=== PATIENT | male | born 1955 | race African-American/Black ===

== ENCOUNTER 2023-03-27 08:00 | Day surgery (SDC) | payer BC, SELFPAY ==
[2023-03-27] VITALS (13 sets, daily range): BP systolic 128–189; BP diastolic 78–106; PULSE 45–75; RESP 12–16; TEMP 36–36.7; O2SAT 94–98; BMI 30.7
[2023-03-27] MEDS: LACTATED RINGERS 1000 ML 1,000 ML 100 ML IV (08:20)
[2023-03-27] MEDS: SODIUM CHLORIDE 0.9 % (FLUSH) 10 ML SYRINGE IVF (08:49)
--- NOTE | 2023-03-27 10:34 | P.GSOP_ITS ---
Operative Note Pre-op diagnosis: Right inguinal hernia Post-op diagnosis: Same Type of Procedure: Laparoscopic repair of right inguinal hernia with mesh Indications: The patient is a 67-year-old male with a large right inguinal hernia. After discussion of management options including repair versus watchful waiting, he elected to proceed with repair. Procedure Description: After discussing the risks and benefits of the procedure, the patient signed informed consent.? The operative site was marked and the patient was brought to the operating room and placed on the operating table in supine position.? Care was taken to pad the patient's pressure points.?? The patient was then intubated by anesthesia.?? The operative site was then prepped and draped in the usual sterile fashion.? A time-out was then performed. A curvilinear incision was made below the umbilicus. Dissection was carried down to subcutaneous tissue until the anterior rectus fascia was encountered. This was incised off the midline on the right. The rectus muscle fibers were then retracted exposing the posterior fascia. A port with a dissecting balloon was then introduced into the pre-preperitoneal space. This was inflated under direct vision. The balloon was deflated, removed, and a 10 mm working port was placed. The space was insufflated and a 10 mm 30-degree scope was then advanced into the space. Two 5 mm ports were placed in the midline under direct vision. Dissection began on the right side. A large direct hernia was noted. This was containing fat. This was completely reduced. David's ligament and the pubic bone were then exposed medially. Following this, dissection was carried out laterally. There was no large indirect defect, however the peritoneum was dissected free from the cord structures. During the dissection, small bleeding vessels on the preperitoneal fat were controlled with a combination of clips and cautery. Once the space was completely dissected, a piece of Bard 3DMax mesh for the appropriate side was placed into the abdomen. This was positioned with the marker pointed medially and crossing the midline to prevent recurrence of the direct hernia. A Tacker was used to attach the mesh medially at David's ligament as well as anterior superiorly to this and 1 tack laterally with care to avoid the epigastric vessels and stay above the inguinal ligament. Once this was completed the herniated fat was placed on top of the mesh and the preperitoneal space desufflated under direct vision to ensure the mesh laid f lat. 10 mL of 0.5% Marcaine were instilled into the preperitoneal space through a port. The ports were removed. The fascia from the infraumbilical port was closed with 0 Vicryl. The skin incisions were closed with absorbable subcuticular suture. Sterile dressings were then applied. The scrotum was examined to ensure that both testicles were down. Instrument sponge and needle counts were correct at the end of the case. The patient was then woken and transported to the recovery area in stable condition. ? The patient tolerated the procedure well. Findings: Large fat containing direct right inguinal hernia. Implants: Large Bard 3DMax mesh for the right side Anesthesia: GETA Surgeon: Yudy Munoz MD Estimated blood loss (mL): 20 Condition: stable Disposition: PACU Date of procedure: 03/27/23
[2023-03-27] MEDS: BUPIVACAINE 0.25% 30 ML INJECTION (12:10)
--- NOTE | 2023-03-27 12:31 | W.ANESCHARGE ---
Anesthesia Charges Start Date/Time Anesthesia Start Date: 03/27/23 Anesthesia Start Time: 10:40 Stop Date/Time Anesthesia Stop Date: 03/27/23 Anesthesia Stop Time: 12:29
[2023-03-27] MEDS: HYDROmorphone 0.5 mg/0.5 ml inj IVP ×2 (12:32→12:46)
--- NOTE | 2023-03-27 12:57 | W.ANESCHARGE ---
Anesthesia Charges Start Date/Time Anesthesia Start Date: 03/27/23 Anesthesia Start Time: 10:40 Stop Date/Time Anesthesia Stop Date: 03/27/23 Anesthesia Stop Time: 12:29
== END 2023-03-27 14:11 | disposition home or self-care (01) ==
PROVIDERS: PCP Family Medicine; Visit Provider Surgery
PROC: (CPT 49650; principal; 2023-03-27 09:30)
DX: K40.90 Unilateral inguinal hernia, without obstruction or gangrene, not specified as recurrent (principal)
CPT/HCPCS: 49650; 790; 830; 840; C1781; J0330; J0665; J1100; J1170; J1885; J2405; J2704; J2710; J3010; J7120

== ENCOUNTER 2023-09-14 21:40 | Emergency (ER) | payer OTHER, BC, SELFPAY ==
[2023-09-14 21:57] VITALS: BP 165/83; PULSE 79; RESP 16; TEMP 36.8; O2SAT 97
--- NOTE | 2023-09-14 22:45 | ED.NECK ---
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 He did not have any pain initially but now has developed tightness in his neck and upper back. He does not report any headache or neurologic deficits. Related Data Home Medications Medication Instructions Recorded Confirmed ascorbic acid 1,000 1 ea PO 03/24/23 tj-hwlrbdifnsvq-avbczgnj powder effervescent pack (Emergen-C) atorvastatin 40 mg tablet 40 mg PO DAILY 03/24/23 03/27/23 chlorthalidone 25 mg tablet 25 mg PO DAILY 03/24/23 03/27/23 cholecalciferol (vitamin D3) 25 1,000 unit PO DAILY 03/24/23 03/27/23 mcg (1,000 unit) capsule cyanocobalamin (vitamin B-12) 1,000 mcg PO DAILY 03/24/23 03/27/23 1,000 mcg capsule multivitamin (Daily Multi-Vitamin 1 tab PO DAILY 03/24/23 03/27/23 tablet) sildenafil 100 mg tablet 100 mg PO DAILY PRN 03/24/23 03/27/23 Previous Rx's Medication Instructions Recorded hydrocodone 5 mg-acetaminophen 325 1 - 2 tab PO Q6H PRN Pain #20 tabs 03/27/23 mg tablet Allergies Allergy/AdvReac Type Severity Reaction Status Date / Time No Known Allergies Allergy Unknown Verified 03/27/23 08:34 Review of Systems Status of ROS: Reports: 10 or more systems reviewed and unremarkable except as noted in History and below Narrative: Constitutional: No fevers, no weight gain or loss. Eyes: No discharge. No vision changes. HENT: No congestion, no sore throat, no ear pain. Cardiovascular: No chest pain, no palpitations. Respiratory: No shortness of breath, no wheezes, no cough. Gastrointestinal: No abdominal pain, no vomiting, no diarrhea. Genitourinary: No dysuria, no hematuria. Musculoskeletal: Neck pain as described above with some decreased range of motion. Skin: No rashes, no pruritis. Neurological: No dizziness, weakness, sensory change, speech change. Endo/Heme/Allergies: No bruising or bleeding. No polydipsia. Pysch: no suicidality, no anxiety, no insomnia. All other systems reviewed and are negative. PFSH PFSH Social History Smoking Status: Current every day smoker What tobacco products do you use: cigarettes Do you use any of these nicotine containing products: None How often do you have a drink containing alcohol: monthly or less How many standard drinks containing alcohol do you have on a typical day: 1 or 2 How often do you have six or more drinks on one occasion: Never AUDIT-C Alcohol total score: 1 Non-prescribed substance use: denies use Caffeine: Yes Exam Narrative: Exam Narrative: Constitutional: Well-developed, well-nourished, no acute distress. HEENT: Normocephalic, atraumatic. Neck: No midline tenderness. Diffuse pain bilaterally with associated decreased range of motion. The patient is able to flex and extend. Heart: Intact distal pulses. Lungs: No chest discomfort. No wheezes, rhonchi, or rales. Abdomen: Nontender. Back: Normal range of motion. Extremities: Normal range of motion. No injury. Skin: Intact. No rash. Warm. No erythema or pallor. Neurologic: No altered sensation. No weakness. Alert and oriented. Psychiatric: No suicidality. No anxiety or depression. No insomnia. Nursing notes and vitals signs are reviewed. Const: Vital Signs, click to edit/add: Vital Signs - 24 hr 09/14/23 21:57 Temperature 98.3 F Pulse Rate [Left P ulse Oximeter] 79 Respiratory Rate 16 Blood Pressure [Ri ght Upper Arm] 165/83 H Pulse Oximetry 97 Oxygen Delivery Me thod Room Air Course Vital Signs Vital signs: Initial Vital Signs Temperature 98.3 F 09/14/23 21:57 Temperature Source Temporal Artery Scan 09/14/23 21:57 Pulse Rate 79 09/14/23 21:57 Pulse Rhythm Regular 09/14/23 21:57 Respiratory Rate 16 09/14/23 21:57 Blood Pressure 165/83 H 09/14/23 21:57 Blood Pressure Mean 110 H 09/14/23 21:57 Blood Pressure Position Sitting 09/14/23 21:57 Pulse Oximetry 97 09/14/23 21:57 Oxygen Delivery Method Room Air 09/14/23 21:57 Vital Signs Temperature 98.3 F 09/14/23 21:57 Pulse Rate 79 09/14/23 21:57 Respiratory Rate 16 09/14/23 21:57 Blood Pressure 165/83 H 09/14/23 21:57 Pulse Oximetry 97 09/14/23 21:57 Oxygen Delivery Method Room Air 09/14/23 21:57 Temperature 98.3 F 09/14/23 21:57 Pulse Rate 79 09/14/23 21:57 Respiratory Rate 16 09/14/23 21:57 Blood Pressure 165/83 H 09/14/23 21:57 Pulse Oximetry 97 09/14/23 21:57 Oxygen Delivery Method Room Air 09/14/23 21:57 MDM - Neck Pain/Injury MDM Narrative Medical decision making narrative: This patient comes in reporting increasing neck and upper back pain after a sort of whiplash injury that occurred at work today. He does not have any midline tenderness. Nexus rules for neck imaging indicate no need for imaging at this time. The patient did receive a return to work note and prescriptions for Toradol and Flexeril. I advised him to follow-up with the spine clinic as needed. Discharge Plan Discharge Clinical Impression: Strain of neck muscle Patient Disposition: Home, Self-Care Condition: Unchanged Additional Instructions: Take medication as needed and indicated. Increase activity as tolerated. Follow up with spine clinic if needed. Call [phone] for appointment. Prescriptions: No Action Emergen-C 1,000 mg powder effervescent in packet 1 ea PO atorvastatin 40 mg tablet 40 mg PO DAILY chlorthalidone 25 mg tablet 25 mg PO DAILY cholecalciferol (vitamin D3) 25 mcg (1,000 unit) capsule 1,000 unit PO DAILY cyanocobalamin (vitamin B-12) 1,000 mcg capsule 1,000 mcg PO DAILY multivitamin [Daily Multi-Vitamin] Tablet 1 tab PO DAILY sildenafil 100 mg tablet 100 mg PO DAILY PRN Rx Instructions: administer 30 minutes to 4 hours before activity hydrocodone-acetaminophen 5-325 mg Tablet 1 - 2 tab PO Q6H PRN (Reason: Pain) Qty: 20 0RF Follow Up/Referrals: Car Gan MD [Primary Care Provider] - Stand Alone [facility]: [facility]
--- OUTSIDE RECORDS SUMMARY | 2023-09-14 23:05 | XMS_ITS | Clinical Summary ---
Author Name Unknown Organization [facility] Address [place], [place] [address] Care Team Providers Care Mechanical Drafter Name Role Phone VotelCar MD Primary Care Provider + Allergies No known active allergies Medications Medication Sig Dispensed Refills Start Date End Date Status multivitamin (MVI) tablet Take 1 tablet by mouth once daily. 0 08/12/2016 Active Ascorbic Thie-Scmppttzz-Qsf (EMERGEN-C) 1,000 mg pwep Take by mouth. 0 08/12/2016 Active Cholecalciferol, Vitamin D3, (VITAMIN D3) 1,000 unit tablet Take 1 tablet by mouth once daily. 07/18/2018 Active cyanocobalamin (Vitamin B-12) 1,000 mcg tablet Take 1 Tablet (1,000 mcg) by mouth once daily. 90 Tablet 3 10/06/2022 Active sildenafil citrate (Viagra) 100 mg tabletIndications:Erec tile dysfunction, unspecified erectile dysfunction type Take 1 Tablet (100 mg) by mouth once daily if needed for Erectile Dysfunction. Take 30min to 4 hours before sexual activity. Max 100mg/24hr. 10 Tablet 3 10/06/2022 Active atorvastatin (LIPITOR) 40 mg tabletIndications:Hype rlipidemia, unspecified hyperlipidemia type Take 1 Tablet (40 mg) by mouth once daily. 90 Tablet 3 10/06/2022 Active chlorthalidone (HYGROTON) 25 mg tabletIndications:HTN (hypertension) Take 1 Tablet (25 mg) by mouth once daily. 90 Tablet 3 10/12/2022 Active Active Problems Problem Noted Date Diagnosed Date Hypersomnolence 08/18/2016 Snoring 08/18/2016 Hyperlipidemia 08/29/2014 Vitamin D deficiency 08/29/2014 Colon polyp 04/01/2011 Overview: Colonoscopy 03/2011 polyp repeat in 5 years Colonoscopy 08/2016 polyps repeat in 3 years Colonoscopy 12/2019 normal, repeat in 5 years Tobacco use disorder 01/27/2011 Resolved Problems Problem Noted Date Diagnosed Date Resolved Date Routine general medical exam ination at a health care facility 01/27/2011 07/18/2018 Immunizations Name Administration Dates Next Due COVID-19 Vaccine Spikevax (M oderna 50mcg/0.5mL) 12YO+ [id number] Formula PF 03/22/2023 Influenza A (H1N1), Inactivated 05/13/2009 Influenza, IIV3 (Age >=3 years) 01/10/2012,02/18 Influenza, IIV4 (=>6mos) MDV 02/12/2020 Influenza, Inactivated AIIV4 (Age 65+ Years) Preserv Free 02/08/2022,02/09/2021 Pneumococcal Conj 20-valent (Prevnar 20) 022 Tdap 07/18/2018,08/13/2008 Zoster (Shingrix-RZV, recombinant) 08/20/2021 Family History Medical History Relation Name Comments Cancer Brother 7 Unknown type Good Health Brother 8 Good Health Brother 9 Good Health Brother 10 Good Health Brother 11 Heart Disease Brother 12 Diabetes Brother 13 Unknown Father Heart Disease Mother Good Health Sister 5 Good Health Sister 6 Good Health Sister 7 Good Health Sister 8 Relation Name Status Comments Brother 1 Alive Brother 2 Alive Brother 3 Alive Brother 4 Alive Brother 5 Alive Brother 6 ? cancer; age 5 8 Brother 7 Brother 8 Brother 9 Brother 10 Brother 11 Brother 12 Brother 13 Father (Age 83) Old age Mother Alive Sister 1 Alive Sister 2 Alive Sister 3 Alive Sister 4 Alive Sister 5 Sister 6 Sister 7 Sister 8 Social History Tobacco Use Types Packs/Day Years Used Date Smoking Tobacco: Every Day Cigarettes Smokeless Tobacco: Never Tobacco Cessation:Ready to Q uit: Not Asked; Counseling Given: Not Answered Comments:4-5 cigarettes a day.-1/2 cig only Alcohol Use Standard Drinks/Week Comments Not Currently 0 (1 standard drink = 0.6 oz pur e alcohol) occassional PHQ-2 Answer Date Recorded PHQ-2 TOTAL SCORE 0 10/06/2022 Social Connections Answer Date Recorded Frequency of Communication with Friends and Fami ly 0 03/22/2023 Alcohol Use Answer Date Recorded How often do you have a drink containing alcohol ? 2 03/22/2023 How many drinks containing a lcohol do you have on a typical day when you are drinking? 0 03/22/2023 How often do you have five or more drinks on one occasion? 0 03/22/2023 Financial Resource Strain Answer Date R ecorded Difficulty of Paying Living Expenses 3 03/22/2023 Difficulty of Paying Living Expenses Not on file 03/22/2023 Food Insecurity Answer Date Recorded Worried About Running Out of Food in the Last Ye ar 1 03/22/2023 Transportation Needs Answer Date Record ed Lack of Transportation (Medical) 1 03/22/2023 Housing Stability Answer Date Recorded Unable to Pay for Housing in the Last Year 1 03/22/2023 Sex and Gender Information Value Date Recorded Sex Assigned at Not on file Gender Identity Not on file Sexual Orientation Not on file Obstetrics History Last Filed Vital Signs Vital Sign Reading Time Taken Comments Blood Pressure 126/77 04/11/2023 1:31 PM INTERIOR DESIGN PROFESSOR Pulse 78 04/11/2023 1:31 PM INTERIOR DESIGN PROFESSOR Temperature 37.1 ??C (98.7 ??F) 10/06/2022 2:15 PM CD T Respiratory Rate 18 09/24/2021 6:07 PM CDT Oxygen Saturation 98% 04/11/2023 1:31 PM INTERIOR DESIGN PROFESSOR Inhaled Oxygen Concentration - - Weight 87.8 kg (193 lb 8 oz) 04/11/2023 1:31 PM INTERIOR DESIGN PROFESSOR Height 168.8 cm (5' 6.46) 03/22/2023 1:14 PM CS T Body Mass Index 30.8 03/22/2023 1:14 PM INTERIOR DESIGN PROFESSOR Plan of Treatment Health Maintenance Due Date Last Done Comments AAA screening age 65-74 2020 Zoster (shingles) series for age 50+ (2 of 2) 10/15/2021 08/20/2021 Depression screening for age 12+ 10/07/2023 10/06/2022, 02/02/2021, 10/16/2019, Additional history exists Influenza for age 65+ 12/31/2023 02/08/2022 , 02/09/2021, 02/12/2020, Additional history exists BMI (ht and wt on same day) for age 18+ 03/22/2024 03/22/2023, 10/06/2022, 10/04/2021, Additional history exists Colonoscopy through age 75 01/06/202501/06, 01/07/2020, 01/07/2020, Additional history exists Lipids for age 45-75 10/07/2027 10/06/2022, 02/02/2021, 10/16/2019, Additional history exists Tetanus booster 07/18/2028 07/18/2018, 08/13/2008 Hepatitis C screening for ag e 18-79 Completed 08/28/2014, 01/27/2011, 08/13/2008 Tdap Completed 07/18/2018, 08/13/2008 Pneumococcal series for age 65+ Completed COVID-19 vaccine series Completed 03/22/20, 02/23/2022, 04/09/2021, Additional history exists Procedures Procedure Name Priority Date/Time Associated Diagnosis Comments LIPID PANEL W REFLEX MEASURED LDL Routine 10/06/2022 2:30 PM CDT Hyperlipidemia, unspecified hyperlipidemia type COLONOSCOPY SCREENING Routine 01/07/2020 12:37 PM CDT History of colon polyps ANTI HCV Routine 08/28/2014 1:18 PM CDT Screen for STD (sexually transmitted disease) from Last 3 Months or Most Recently Relevant to Health Maintenance Results * (ABNORMAL) LIPID PANEL W REFLEX MEASURED LDL (10/06/2022 2:30 PM CDT) Pathologist [facility] CHOLESTEROL,TOTAL 232(H) 100 - 199 mg/dL 10/07/2022 12:44 AM CDT [facility] [employer] Comment: Cholesterol, Total Reference Ranges Desirable <200 mg/dL Borderline 200-239 mg/dL High >=240 mg/dL TRIGLYCERIDES 83 <150 mg/dL 10/07/2022 12:44 AM CDT [facility] [employer] [facility] HDL CHOLESTEROL 43 >40 mg/dL 12:44 AM CDT [facility] NON-HDL CHOLESTEROL 189(H) <145 mg/dl 10/07/2022 12:44 AM CDT [facility] CHOL/HDL RATIO 5.40(H) <4.50 10/07/2022 12:44 AM CDT [facility] LDL CHOLESTEROL 172(H) <=130 mg/dL 10/07/2022 12:44 AM CDT [facility] VLDL CHOLESTEROL 17 <=30 mg/dL 10/07/2022 12:44 AM CDT [facility] PROVIDER ORDERED STATUS RANDOM 10/07/2022 12:44 AM CDT [facility] Blood BLOOD SPECIMEN / Unknown Venipuncture / Unknown 10/06/2022 2:30 PM CDT 10/06/2022 2:31 PM CDT Car Gan MD CHEMISTRY [facility] [address] [place] [address], * COLONOSCOPY SCREENING (01/07/2020 12:37 PM CDT) [address] GI PROCEDURE ORD * ANTI HCV (08/28/2014 1:18 PM CDT) HEPATITIS C ANTIBODY Non-Reacti ve Non-Reacti ve 08/28/2014 10:29 PM CDT [facility] Blood specimen (specimen) BLOOD SPECIMEN / Unknown Venipuncture / Unknown 08/28/2014 1:18 PM CDT 08/28/2014 1:18 PM CDT Narrative [facility] - 08/28/2014 10:29 PM CDT Antibodies to HCV not detected; does not exclude the possibility of exposure to HCV. [address] SEND OUTS [facility] [address] [place] [address], from Last 3 Months or Most Recently Relevant to Health Maintenance Care Teams Mechanical Drafter Relationship Specialty Start Date End Date Votel, Car Medley MD [address] [place] [address] PCP - General Family Practice 10/12/22
== END 2023-09-14 23:17 | disposition home or self-care (01) ==
LOC: ED 23:04
PROVIDERS: Emergency Provider Emergency Medicine Emergency Medical Services; PCP Family Medicine
DX: S16.1XXA Strain of muscle, fascia and tendon at neck level, initial encounter (principal); V69.3XXA Occupant (driver) (passenger) of heavy transport vehicle injured in unspecified nontraffic accident, initial encounter; Y99.0 Civilian activity done for income or pay
CPT/HCPCS: 99283; 99284

== ENCOUNTER 2025-03-14 07:11 | Outpatient (CLI) | payer OTHER, SELFPAY ==
--- NOTE | 2025-03-14 08:31 | P.ANES_ITS ---
Anesthesia Charges Start Date/Time Anesthesia Start Date: 03/14/25 Anesthesia Start Time: 08:07 Stop Date/Time Anesthesia Stop Date: 03/14/25 Anesthesia Stop Time: 08:32 Coding CPT Codes CPT Codes: MICHAEL LWR INTST NDSC NOS - [id number] ([id number]) P2 - PATIENT W/MILD SYST DISEASE, QK - VEST BUSHELER 2-4 CNCRNT ANES PROC, QX - ROOM SERVICE SERVER SVC W/ MD MED DIRECTION
--- NOTE | 2025-03-14 08:31 | W.ANESCHARGE ---
Anesthesia Charges Start Date/Time Anesthesia Start Date: 03/14/25 Anesthesia Start Time: 08:07 Stop Date/Time Anesthesia Stop Date: 03/14/25 Anesthesia Stop Time: 08:32 Coding CPT Codes CPT Codes: MICHAEL LWR INTST NDSC NOS - [id number] ([id number]) P2 - PATIENT W/MILD SYST DISEASE, QK - PETROLEUM ENGINEER 2-4 CNCRNT ANES PROC, QX - FERMENTER SVC W/ MD MED DIRECTION
--- NOTE | 2025-03-14 08:34 | P.ANES_ITS ---
Anesthesia Charges Start Date/Time Anesthesia Start Date: 03/14/25 Anesthesia Start Time: 08:07 Stop Date/Time Anesthesia Stop Date: 03/14/25 Anesthesia Stop Time: 08:32 Coding CPT Codes CPT Codes: MICHAEL LWR INTST NDSC NOS - [id number] ([id number]) P2 - PATIENT W/MILD SYST DISEASE, QK - INFO SPECIALIST 2-4 CNCRNT ANES PROC, QX - FISH LIVER SORTER SVC W/ MD MED DIRECTION
--- NOTE | 2025-03-14 08:34 | W.ANESCHARGE ---
Anesthesia Charges Start Date/Time Anesthesia Start Date: 03/14/25 Anesthesia Start Time: 08:07 Stop Date/Time Anesthesia Stop Date: 03/14/25 Anesthesia Stop Time: 08:32 Coding CPT Codes CPT Codes: MICHAEL LWR INTST NDSC NOS - [id number] ([id number]) P2 - PATIENT W/MILD SYST DISEASE, QK - SHOPPING INSPECTOR 2-4 CNCRNT ANES PROC, QX - PRODUCT SAFETY ASSOCIATE SVC W/ MD MED DIRECTION
== END 2025-03-14 07:12 | disposition home or self-care (01) ==
LOC: OP CLINIC 07:13
PROVIDERS: PCP Family Medicine; Visit Provider Internal Medicine Gastroenterology
DX: Z12.11 Encounter for screening for malignant neoplasm of colon (principal); D12.2 Benign neoplasm of ascending colon; D12.4 Benign neoplasm of descending colon; Z86.0101 Personal history of adenomatous and serrated colon polyps
CPT/HCPCS: 00811; 00812; 45385; J2704